=== PATIENT | female | born 1995 | race Caucasian/White ===

== ENCOUNTER 2020-05-20 19:29 | Emergency (ER) | payer OTHER ==
[2020-05-20 21:08] LABS: BASOPHIL 0.5 % (0-2); EOSINOPHIL 1.4 % (0-5); HCT 34.9 % (37.0-47.0); HGB 11.1 g/dl (12.5-16.0); LYMPHOCYTE 29.9 % (15-48); MCH 27.3 pg (25.0-31.0); MCHC 31.8 g/dL (32.0-36.0); MCV 85.7 fL (78.0-100.0); MPV 11.1 fL (6.0-9.5); NEUTROPHIL 60.9 % (41-80); NRBC 0; PLT 238 K/uL (150-400); RBC 4.07 M/uL (4.20-5.40); RDW 14.2 % (11.5-14.0); WBC 7.6 K/uL (4.0-10.5)
[2020-05-20 21:14] LABS: BILIRUBIN NEGATIVE (NEGATIVE); BLOOD 3+ Ery/uL (NEGATIVE); CLARITY CLOUDY (CLEAR); COLOR YELLOW (YELLOW); GLUCOSE (U) NORMAL (NORMAL); LEUKOCYTES 1+ Leu/uL (NEGATIVE); NITRITE NEGATIVE (NEGATIVE); PROTEIN TRACE (LOW) mg/dL (NEGATIVE); UROBILINOGEN 0.2 mg/dL (0.2-1.0)
[2020-05-20 21:16] LABS: HCG (URINE) SCREEN NEGATIVE (NEGATIVE)
[2020-05-20 21:21] LABS: BACTERIA 3+; SQUAMOUS EPITHELIAL CELLS >50
[2020-05-20 21:22] LABS: SPERM PRESENT
[2020-05-20 21:25] LABS: BUN/CREAT RATIO (CALC) 28.3 RATIO; C-REACTIVE PROTEIN 0.7 mg/dL (<=0.90); CREATININE 0.6 mg/dL (0.51-0.95); POTASSIUM 3.2 mmol/L (3.5-5.1)
[2020-05-20] MEDS ORDERED: CEPHALEXIN500 M1 PO (23:06)
== END 2020-05-20 23:20 | disposition home or self-care (01) ==
LOC: FER 19:29
PROVIDERS: Student in an Organized Health Care Education/Training Program
DX: N39.0 Urinary tract infection, site not specified (principal); F17.290 Nicotine dependence, other tobacco product, uncomplicated; Z90.49 Acquired absence of other specified parts of digestive tract; Z98.890 Other specified postprocedural states; Z98.51 Tubal ligation status
CPT/HCPCS: 36415; 76830; 80048; 81001; 84703; 85025; 86140; J2270